=== PATIENT | male | born 1980 | race African-American/Black ===

== ENCOUNTER 2019-01-30 11:09 | Emergency (ER) | payer SELFPAY ==
[2019-01-30 11:13] VITALS: BP 119/82
[2019-01-30] MEDS ORDERED: LIDOCAINE 1% INJ-PF (10 MG/ML) 30 ML SDV INJ ONE (11:24)
[2019-01-30] MEDS ORDERED: CEFTRIAXONE INJ 250 MG VIAL IM ONE (11:24)
[2019-01-30] MEDS ORDERED: AZITHROMYCIN 250 MG TABLET PO ONE (11:24)
--- NOTE | 2019-01-30 11:32 | ER Document Report ---
HPI - HPI Pain Level: 0 Notes: Patient is a 38-year-old male with no significant past medical history who presents complaining of possible corneal exposure by his girlfriend. Patient states that he is able to eat and drink without difficulty. He is urinating normally and having normal bowel movements. He has not noticed any swelling or pain in his genital region. He has not noticed any discharge. Denies drug allergies. No other concerns or complaints. Denies any headache, fever, URI, sore throat, chest pain, palpitations, syncope, cough, shortness of breath, wheeze, dyspnea, abdominal pain, nausea/vomiting/diarrhea, urinary retention, dysuria, hematuria, or rash. - ROS Systems Reviewed and Negative: Yes All other systems reviewed and negative Past Medical History - Social History Smoking Status: Never Smoker Family History: Reviewed & Not Pertinent Vertical Provider Document - CONSTITUTIONAL Agree With Documented VS: Yes Notes: PHYSICAL EXAMINATION: GENERAL: Well-appearing, well-nourished and in no acute distress. LUNGS: Breath sounds clear to auscultation bilaterally and equal. No wheezes rales or rhonchi. HEART: Regular rate and rhythm without murmurs, rubs, gallops. ABDOMEN: Soft, nontender, nondistended abdomen. No guarding, no rebound. Normal bowel sounds present. No CVA tenderness bilaterally. : + circum. No urethral discharge. No obvious inguinal adenopathy or hernia. No tenderness to palpation to the testicles, scrotum, penis. No erythema or swelling. Extremities: No cyanosis, clubbing, or edema b/l. Peripheral pulses 2+. Capillary refill less than 3 seconds. NEUROLOGICAL: Normal speech, normal gait. PSYCH: Normal mood, normal affect. SKIN: Warm, Dry, normal turgor, no rashes or lesions noted. - INFECTION CONTROL TRAVEL OUTSIDE OF THE [place] IN LAST 30 DAYS: No Course - Re-evaluation Re-evalutation: 01/30/19 Patient is an afebrile, well-hydrated, 38-year-old male who presents with possible STD exposure to chlamydia. Vitals are acceptable without significant tachycardia, tachypnea, or hypoxia. PE is otherwise unremarkable. Patient is nontoxic-appearing and is tolerating p.o. without difficulty. Chlamydia/gonorrhea test pending. Patient received Zithromax and Rocephin. No further work-up warranted at this time. Low suspicion/risk for acute appendicitis, bowel obstruction, acute cholecystitis, perforated diverticulitis, incarcerated hernia, pancreatitis, perforated ulcer, peritonitis, sepsis, testicular torsion, or other systemic emergent condition at this time. Patient is aware that his condition can change from initial presentation and he needs to monitor symptoms closely and seek medical attention if any acute changes. Conservative measures otherwise for symptoms. Recheck with PCM in 2-3 days. See the health department this week. Return to the ED with any worsening/concerning symptoms otherwise as reviewed in discharge. Patient is in agreement. - Vital Signs Vital signs: Temp Pulse Resp BP Pulse Ox 98.2 F 50 L 16 119/82 98 01/30/19 11:13 01/30/19 11:13 01/30/19 11:13 01/30/19 11:13 01/30/19 11:13 Discharge - Discharge Clinical Impression: Exposure to STD Condition: Stable Disposition: HOME, SELF-CARE Additional Instructions: Maintain fluid intake Proper hygienic technique Keep the skin clean Safe sexual practices with condoms everytime Tylenol/ibuprofen as needed Check in with the health department this week for further testing if warranted Your chlamydia/gonorrhea tests are pending and you will be notified if positive results; you may call in 1 day for the results as well F/u with your PCM in 3-5 days for a recheck Return to the ED with any development of ROSE/fever, trouble with vision, eye redness, worsening pain, urethral discharge, urinary retention, blood in the urine, flank pain, abdominal pain, n/v, Chest Pain, shortness of breath, joint pains, trouble breathing, or any other worsening/concerning symptoms as needed otherwise. [facility] - Follow up in 3-5 days
[2019-01-30 13:33] LABS: CHLAM PCR NOT DETECTED (NOT DETECT)
== END 2019-01-30 11:56 | disposition home or self-care (01) ==
LOC: ER 11:09
DX: Z20.2 Contact with and (suspected) exposure to infections with a predominantly sexual mode of transmission (principal); R19.00 Intra-abdominal and pelvic swelling, mass and lump, unspecified site
CPT/HCPCS: 99283; 96372; 87491; 87591; J3490; J0696